=== PATIENT | male | born 1950 | race Two or more races ===

== ENCOUNTER 2024-02-12 20:11 | Emergency (ER) | payer MEDICARE, OTHER ==
[~2024-02-12] VITALS: Ht 177.8 cm; Wt 81.6 kg
[2024-02-12 22:52] LABS: BASOPHILS # (AUTO) 0.1 K/uL (0.0-0.2); BASOPHILS % (AUTO) 1.1 % (0.0-2.0); EOSINOPHILS # (AUTO) 0.4 K/uL (0.0-0.7); EOSINOPHILS % (AUTO) 3.7 % (0.0-6.0); HEMATOCRIT 43 % (39-51); HEMOGLOBIN 14.2 g/dL (13.5-17.5); LYMPHOCYTES # (AUTO) 3.2 K/uL (0.8-4.8); LYMPHOCYTES % (AUTO) 31.4 % (20.0-44.0); MEAN CORPUSCULAR HEMOGLOBIN 33 PG (26.0-33.0); MEAN CORPUSCULAR HGB CONC 33 g/dl (31.0-36.0); MEAN CORPUSCULAR VOLUME 99 fL (80-96); MONOCYTES # (AUTO) 0.9 K/uL (0.1-1.30); MONOCYTES % (AUTO) 8.5 % (2.0-12.0); NEUTROPHILS # (AUTO) 5.6 K/uL (1.8-8.9); NEUTROPHILS % (AUTO) 55.3 % (43.0-81.0); PLATELET COUNT (AUTO) 240 K/uL (150-450); RED BLOOD CELL COUNT(AUTO) 4.37 MIL/uL (4.5-6.0); RED CELL DISTRIBUTION WIDTH 14.5 % (11.5-15.0); WHITE BLOOD COUNT (AUTO) 10.1 K/uL (4.3-11.0)
[2024-02-12 22:54] LABS: CALCIUM, SERUM 9.3 mg/dL (8.5-10.1); CARBON DIOXIDE 29 mmol/L (21-32); CHLORIDE 105 mmol/L (98-107); CREATININE 0.8 mg/dL (0.6-1.3); GLUCOSE 106 mg/dL (74-106); POTASSIUM 3.7 mmol/L (3.5-5.1); SODIUM SERUM 144 mmol/L (136-145); UREA NITROGEN, BLOOD 13 mg/dL (7-18)
[2024-02-12 22:59] LABS: INR 0.97 (0.91-1.10); PARTIAL THROMBOPLASTIN TIME 36.4 SEC (24.3-34.3); PROTHROMBIN TIME 10.3 SECS (9.2-11.1)
[2024-02-13] MEDS ORDERED: CEPH500C2 PO (00:11)
[2024-02-13] MEDS ORDERED: SULF1TAB48 PO (00:11)
[2024-02-13] MEDS ORDERED: CEPHALEXIN MONOHYDRATE 500 MG CAPSULE PO ONE (00:25)
[2024-02-13] MEDS ORDERED: SULFAMETH/TRIMETH 800/160 MG 1 UDTAB TABLET ONE (00:26)
[2024-02-13] MEDS: SULFAMETH/TRIMETH 800/160 MG 1 UDTAB TABLET PO ONE (00:31)
[2024-02-13] MEDS: CEPHALEXIN MONOHYDRATE 500 MG CAPSULE PO ONE (00:31)
[2024-02-13 00:32] VITALS: BP 149/91; TEMP 97.5; O2SAT 99
== END 2024-02-13 00:32 | disposition home or self-care (01) ==
LOC: ER 20:35
DX: M79.672 Pain in left foot (principal); M79.89 Other specified soft tissue disorders; I10 Essential (primary) hypertension; W01.0XXA Fall on same level from slipping, tripping and stumbling without subsequent striking against object, initial encounter; Y93.89 Activity, other specified; Y92.89 Other specified places as the place of occurrence of the external cause; Y99.8 Other external cause status
CPT/HCPCS: 36415; 73630-TC; 80048-TC; 85025-TC; 85730-TC; 93971-TC

== ENCOUNTER 2024-08-31 21:59 | Emergency (ER) | payer MEDICARE, OTHER ==
[~2024-08-31] VITALS: Ht 167.6 cm; Wt 81.6 kg
[~2024-08-31 21:59] MED LIST: CEPH500C2 PO; SULF1TAB48 PO
[2024-08-31 23:34] VITALS: BP 138/84; TEMP 97.6; O2SAT 99
== END 2024-08-31 23:34 | disposition home or self-care (01) ==
LOC: ER 22:05
DX: R09.A2 Foreign body sensation, throat (principal); H61.22 Impacted cerumen, left ear; I10 Essential (primary) hypertension
CPT/HCPCS: 70360-TC

== ENCOUNTER 2024-09-02 18:37 | Emergency (ER) | payer MEDICARE, OTHER ==
[~2024-09-02] VITALS: Ht 170.2 cm; Wt 81.6 kg
[2024-09-02] MEDS ORDERED: GUAI1TBM19 PO (22:17)
[2024-09-02] MEDS ORDERED: BENZ-13 PO (22:17)
[2024-09-02 23:18] VITALS: BP 135/76; TEMP 98.1; O2SAT 98
== END 2024-09-02 23:19 | disposition home or self-care (01) ==
LOC: ER 18:42
DX: J02.9 Acute pharyngitis, unspecified (principal); R05.9 Cough, unspecified; I10 Essential (primary) hypertension; Z79.899 Other long term (current) drug therapy; Z20.822 Contact with and (suspected) exposure to COVID-19
CPT/HCPCS: 71046